=== PATIENT | male | born 1950 | race Caucasian/White ===

== ENCOUNTER 2017-06-23 11:42 | Emergency (ER) | payer MEDICARE, MEDICAID ==
[2017-06-23] MEDS ORDERED: Oxycodone/Acetaminophen 5/325 mg Tab PO STA (12:03)
[2017-06-23] MEDS ORDERED: Lidocaine 5% Patch TD STA (12:03)
--- NOTE | 2017-06-23 12:03 | C.PDOC ---
History Of Present Illness CO R BACK/CHEST WALL INJURY S/P ACCID FALL YESTERDAY. PS FELL DOWN 4 STEPS ONTO R SIDE. CO PAIN TO AREA, WORSE W MOVEMENT AND COUGHING. NO PAIN MEDS TAKEN. DENIES OTHER ASSOC SX OR INJURY EXAM MOD DIST NONTOXIC HEENT ATRAUM LUNGS CTA B/L NO W/R/R CHEST WALL +TEND R LAT LOWER CHEST WALL NO CREPITUS, DEFORM BACK +R MID TEND W SPASM. NO SPINAL TEND. LIMITED ROM DUE TO PAIN CV RRR ABD NEG NEURO INTACT SKIN INTACT - HPI Time Seen by Provider: 06/23/17 11:58 Chief Complaint (Nursing): Back Pain History Per: Patient History/Exam Limitations: no limitations Onset/Duration Of Symptoms: Days Severity: Moderate Past Medical History Reviewed: Historical Data, Nursing Documentation, Vital Signs Vital Signs: Last Vital Signs Temp 98.2 F 06/23/17 11:53 Pulse 64 06/23/17 11:53 Resp 16 06/23/17 12:43 BP 117/68 06/23/17 11:53 Pulse Ox 97 06/23/17 12:54 - Medical History PMH: Arthritis, Asthma Surgical History: No Surg Hx Family History: States: No Known Family Hx - Social History Hx Tobacco Use: No Hx Alcohol Use: No Hx Substance Use: No - Immunization History Hx Tetanus Toxoid Vaccination: No Hx Influenza Vaccination: No Hx Pneumococcal Vaccination: No Review Of Systems Except As Marked, All Systems Reviewed And Found Negative. Cardiovascular: Positive for: Chest Pain Musculoskeletal: Positive for: Back Pain (right side of back) Physical Exam - Physical Exam Appears: Non-toxic, Other (moderate distress) Skin: Normal Color, Warm, Other (intact) Head: Atraumatic, Normacephalic Eye(s): bilateral: Normal Inspection, PERRL Chest: No Deformity, Tenderness (tenderness in the right lateral lower chest wall), Other (no crepitus) Cardiovascular: Rhythm Regular (regular rate and rhythm) Respiratory: Normal Breath Sounds, No Rales, No Rhonchi, No Wheezing Gastrointestinal/Abdominal: Normal Exam, Soft, No Tenderness Back: Vertebral Tenderness (right midline tenderness), Decreased ROM (decreased rom due to pain), Muscle Spasm, No Paraspinal Tenderness Neurological/Psych: Oriented x3, Normal Speech, Normal Cognition, Normal Motor, Normal Sensation, Other (intact) ED Course And Treatment O2 Sat by Pulse Oximetry: 97 (RA) Pulse Ox Interpretation: Normal - Radiology CXR: Interpreted by Me CXR Interpretation: No: Fracture, Pnemothorax Medical Decision Making Medical Decision Making: Plan: --X-Rays - Ribs and Chest RT. --Motrin 600 mg PO --Zofran 4 mg PO Disposition Counseled Patient/Family Regarding: Studies Performed, Diagnosis, Need For Followup, Rx Given - Disposition Referrals: [facility] [Outside] [facility] [Outside] YOUR,PMD [Other] Disposition: HOME/ ROUTINE Disposition Time: 12:27 Condition: IMPROVED Additional Instructions: APLICA PARCHE AL PHANI AFECTADA. MAX 3 PARCHES A LA VEZ. RETIRE EL PATCH 12 HORAS DESPUS DE LA APLICACIN INICIAL. ALTERNATIVAS 12 HORAS ACTIVADAS, 12 HORAS DESACTIVADAS. 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 - Scribe Statement The provider has reviewed the documentation as recorded by the Bob Ndiaye Provider Attestation: All medical record entries made by the Yenyibagnieszka were at my direction and personally dictated by me. I have reviewed the chart and agree that the record accurately reflects my personal performance of the history, physical exam, medical decision making, and the department course for this patient. I have also personally directed, reviewed, and agree with the discharge instructions and disposition.
[2017-06-23 12:08] VITALS: BP 117/68; PULSE 64; TEMP 98.2; O2SAT 97
[2017-06-23] MEDS ORDERED: Lidocaine 5% Patch TD ONE (12:12)
[2017-06-23 12:45] VITALS: RESP 16
--- NOTE | 2017-06-23 13:40 | RAD ---
PROCEDURE: Radiographs of the Chest and Right Ribs. HISTORY: TRAUMA COMPARISON: None available. TECHNIQUE: Frontal radiograph of the chest and multiple oblique radiographs of the right ribs were obtained. FINDINGS: RIGHT RIBS: No fracture or focal lesion visualized. LUNGS: Clear. PLEURA: No pneumothorax or pleural fluid. CARDIOVASCULAR: Normal sized heart. No pulmonary vascular congestion. Atherosclerotic change of the aorta is noted with uncoiling. Trachea is midline. OTHER FINDINGS: None. IMPRESSION: Unremarkable radiographs of the chest and right ribs. No right rib fracture.
== END 2017-06-23 12:43 | disposition home or self-care (01) ==
LOC: C.ER 11:42
DX: S20.211A Contusion of right front wall of thorax, initial encounter (principal); W10.9XXA Fall (on) (from) unspecified stairs and steps, initial encounter; M54.5 Low back pain